=== PATIENT | female | born 1960 | race Caucasian/White ===

== ENCOUNTER 2018-11-27 15:12 | Emergency (ER) | payer OTHER ==
--- NOTE | 2018-11-27 17:07 | RAD ---
EXAM: XR Forearm Rt 2 View STANDARD PROVIDED CLINICAL HISTORY: Pain COMPARISON: None FINDINGS: On the lateral view, there is evidence for cortical disruption involving the distal margin of the uln a suspicious for nondisplaced fracture. No additional fracture is evident. Alignment appears anatomic. Joint spaces appear preserved. IMPRESSION: Findings suspicious for distal ulnar fracture. Correlation with dedicated wrist radiographs recommend ed.
--- NOTE | 2018-11-27 17:11 | RAD ---
EXAM: XR Hand Rt 3 View STANDARD PROVIDED CLINICAL HISTORY: Pain FINDINGS: Evaluation is degraded by film artifact. There is no evidence for fracture or other acute osseous abn ormality. Alignment appears anatomic. Joint spaces appear preserved. IMPRESSION: No evidence for an acute osseous abnormality with limitations as above. If there is persistent clinic al concern, conservative management and follow-up imaging advised.
--- NOTE | 2018-11-27 18:04 | RAD ---
RIGHT SHOULDER THREE VIEWS: HISTORY: Injury. COMPARISON: None. FINDINGS: Comminuted fracture, right humeral neck, with approximately 60 of angulation, apex lateral, and medi al displacement of the humeral shafts. Possible right-sided rib fractures. IMPRESSION: Comminuted, angulated humeral head/neck fracture. Recommend correlation with the focal tenderness of the right ribcage for underlying rib fractures. POS: HOME
--- NOTE | 2018-11-27 18:05 | RAD ---
RIGHT HUMERUS TWO VIEWS: HISTORY: Injury. COMPARISON: None. FINDINGS: Comminuted fracture, right humeral neck, with apex lateral angulation, as well as medial displacement of the humeral shafts, relative to the femoral head/neck. There is a fragment, which is displaced m edially, approximately one-half shaft width. Multiple right-sided rib fractures, age indeterminate. IMPRESSION: Comminuted humeral neck fracture. POS: HOME
--- NOTE | 2018-11-27 18:26 | RAD ---
RIGHT WRIST THREE VIEWS: HISTORY: Injury. COMPARISON: None. FINDINGS: Exam is limited due to the detector artifact. No definite fracture or malalignment is appreciated. There is mild soft tissue swelling of the wrist. IMPRESSION: Limited examination. No definite fracture appreciated. POS: HOME
== END 2018-11-27 18:30 | disposition home or self-care (01) ==
LOC: MADERS 15:12
DX: S42.211A Unspecified displaced fracture of surgical neck of right humerus, initial encounter for closed fracture (principal); W18.30XA Fall on same level, unspecified, initial encounter

== ENCOUNTER 2019-04-16 13:11 | Emergency (ER) | payer OTHER ==
--- NOTE | 2019-04-16 13:56 | RAD ---
XR Chest 1 View Portable HISTORY: Cough, dyspnea COMPARISON: None FINDINGS: The heart size is normal. The aorta is tortuous. The lungs are well expanded without focal areas of consolidation, pneumothorax or pleural effusions. There is mild pulmonary vascular congestion. There are postop changes and metallic hardware in the right humerus
[2019-04-16 14:36] LABS: #Lymphocytes 0.7 thou/uL (1.20-3.40); #Monocytes 0.5 thou/uL (0.11-0.59); #Neutrophils 14.2 thou/uL (1.40-6.50); %Basophils 0.2 % (0.0-1.0); %Lymphocytes 4.3 % (21.0-51.0); %Monocytes 3.5 % (0.0-10.0); %Neutrophils 91.9 % (42.0-75.0); Hemoglobin 12.8 g/dL (12.0-16.0); Hypochromia SLIGHT = 6-15 cells (100X) (0-5/hpf); MDiff Complete? YES; Mean Corpuscular HGB CONC 28.8 g/dL (32.0-36.0); Mean Corpuscular Hemoglobin 25.2 pg (27.0-31.0); Mean Corpuscular Volume 87.6 fL (78.0-98.0); Mean Platelet Volume 8.5 fL (7.4-10.4); Platelet Count 330 thou/uL (130-400); Platelet Morphology Comment Appears Adequate; RBC Distribution Width 14.1 % (11.5-14.5); Red Blood Cell (RBC) Count 5.07 mill/uL (4.20-5.40); White Blood Cell (WBC) Count 15.5 thou/uL (4.8-10.8)
[2019-04-16 14:42] LABS: ALT (SGPT) 33 U/L (8-55); AST (SGOT) 26 U/L (5-34); Albumin 3.6 g/dL (3.5-5.0); Alkaline Phosphatase 101 U/L (40-110); Anion Gap 15 mmol/L (10-20); BUN (Urea Nitrogen) 19 mg/dL (9.8-20.1); Bilirubin, Total 0.6 mg/dL (0.2-1.2); Calc. Creatinine Clearance 0 mL/min (70-130); Calcium 9.3 mg/dL (7.8-10.44); Carbon Dioxide 30 mmol/L (22-29); Chloride 117 mmol/L (98-107); Estimated GFR-MDRD 76; Globulin 4.2 g/dL (2.4-3.5); Glucose 135 mg/dL (70-105); Lipase 86 U/L (8-78); Potassium 3.4 mmol/L (3.5-5.1); Protein, Total 7.8 g/dL (6.0-8.3); Sodium 159 mmol/L (136-145)
[2019-04-16] MEDS ORDERED: Albuterol Sulfate 2.5 mg/0.5 ml Neb ONE (14:54)
[2019-04-16] MEDS ORDERED: Sodium Chloride 0.9% 1,000 ML ONE (15:24)
== END 2019-04-16 16:20 | disposition short-term general hospital (02) ==
LOC: MADERS 13:11
DX: J44.9 Chronic obstructive pulmonary disease, unspecified (principal); E86.0 Dehydration; E87.0 Hyperosmolality and hypernatremia; R09.02 Hypoxemia; R79.1 Abnormal coagulation profile; Z87.891 Personal history of nicotine dependence; Z79.899 Other long term (current) drug therapy
CPT/HCPCS: 36415; 71045; 80053; 83605; 83690; 83880; 84484; 85025; 85379; 87804; 93005; 94760; 96360; J7050; J7611